=== PATIENT | male | born 1965 | race Caucasian/White ===

== ENCOUNTER 2023-11-02 20:59 | Emergency (ER) | payer OTHER, SELFPAY ==
[2023-11-02 21:02] VITALS: BP 163/98
[2023-11-02 21:24] LABS: % Basophils 0.6 % (0-2); % Eosinophils 3.4 % (0-6); % Monocytes 6.8 % (1.7-9.3); % Neutrophils 52.2 % (42.2-75.2); Absolute Eosinophils 0.2 10^3/uL (0-0.7); Absolute Lymphocytes 1.7 10^3/uL (1.2-3.4); Absolute Monocytes 0.3 10^3/uL (0.1-0.6); Absolute Neutrophils 2.4 10^3/uL (1.4-6.5); Hematocrit 40.5 % (39.0-52.0); Hemoglobin 13.6 g/dL (13.0-18.0); Mean Corp Hgb Conc. 33.6 g/dL (33.0-37.0); Mean Corpuscular Hgb 28.5 pg (27.0-31.0); Mean Corpuscular Volume 84.9 fL (80.0-94.0); Mean Platelet Volume 9.1 fL (7.4-10.4); Nucleated Red Blood Cells % 0 % (-); Platelet Count 164 10^3/uL (130-400); Red Blood Cell Count 4.77 10^6/uL (4.70-6.10); Red Cell Dist. Width 13.8 % (11.5-14.5); White Blood Cell Count 4.7 10^3/uL (4.8-10.8)
[2023-11-02 21:39] LABS: ALT (SGPT) 20 U/L (0-50); AST (SGOT) 30 U/L (17-59); Albumin 4.4 g/dl (3.5-5.0); Alkaline Phosphatase 108 U/L (38-126); Blood Urea Nitrogen 17 mg/dl (9-20); Carbon Dioxide 28 mmol/L (22-30); Chloride 104 mmol/L (98-107); Glucose 101 mg/dl (70-99); Potassium 3.9 mmol/L (3.5-5.1); Sodium 138 mmol/L (135-145); Total Bilirubin 0.7 mg/dl (0.2-1.3); Total Protein 7.1 g/dl (6.3-8.2); eGFR > 60.00
[2023-11-02 21:50] LABS: Troponin I < 0.012 ng/ml
[2023-11-02 21:53] VITALS: BP 139/86
[2023-11-02 22:00] VITALS: BP 139/89
[2023-11-02 22:15] VITALS: BMI 26.4
--- NOTE | 2023-11-02 22:45 | ED.GENMED ---
History of Present Illness
<JOSE Mendieta - Last Filed: 11/02/23 23:13>
General
Chief Complaint: Chest Pain
Source: patient
Exam Limitations: none
Time Seen by Provider: 11/02/23 22:33
Travel History
Have you had any contact with someone who has COVID-19?: No
Do you have any symptoms of coronavirus? Fever > 100 degrees, chills, cough, shortness of breath, sore throat, loss of taste or smell, muscle aches, or headache?: No
History of Present Illness
History of Present Illness:
58 YO M with a PMH of MVP diagnosed at age 12, chronic upper back muscle spasm, right shoulder slap tear >10 years ago, and anxiety presents to the ED tonight with complaints of intermittent left sided chest pain since Monday. Pt reports this
started while he was sitting in the office. He has not taken anything for the pain. He does have some radiation into his left side of his mid back, but states that it is usually present with his chronic muscle spasm. He has been under stress from
his job. 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 He also states his father two months ago. Denies recent travel. Pt states he is planning on traveling Monday and wants to make sure everything is okay before then. Pt does not take daily medications.
Denies SOB, N,V, diaphoresis, dysuria, hematuria, and rectal bleeding.
Denies use of aspirin or anticoagulants.
Social drinker, denies smoking history, denies drug use.
Review of Systems
<JOSE Mendieta - Last Filed: 11/02/23 23:13>
Review of Systems
Constitutional: Reports no symptoms
EENT: Reports no symptoms
Respiratory: Reports no symptoms
Cardiac: Reports chest pain
ABD/GI: Reports no symptoms
: Reports no symptoms
Musculoskeletal: Reports no symptoms
Skin: Reports no symptoms
Neurological: Reports no symptoms
Endocrine: Reports no symptoms
Psychiatric: Reports anxiety
Phy Exam
<Crista Holguin [facility] - Last Filed: 11/02/23 23:13>
Physical Exam
Physical Exam:
Normal S1 and S2
Breath sounds are clear and equal B/L
Mid left sided back pain with palpation
General Physical Exam
General Presentation: well appearing
General age: appears stated age
General Skin: warm and dry
General Habitus: normal
General Mental: alert
General Hydration: appears well hydrated
Cardiovascular Exam
Cardiovascular Exam: regular rate/rhythm
Pulmonary Exam
Pulmonary Exam: lungs clear and no respiratory distress
Neurological Exam
Neurological Exam: alert and oriented x3
Psychiatric Exam
Psychiatric Exam: normal mood/affect
Scores
<Abdirizak Campbell, DO - Last Filed: 11/02/23 23:57>
Heart Score for Chest Pain Patients
STEMI patient?: No
History: Slightly or Non-Suspicious
ECG: Normal
Age: >45 - <65 years
Risk Factors: 1 or 2 Risk Factors
Troponin: </= Normal Limit
Heart Score for Chest Pain Patients: 2
Heart Score Risk: 2.5% MACE over next 6 weeks
Course
<Crista Holguin [facility] - Last Filed: 11/02/23 23:13>
Orders/Labs/Results
Orders:
Orders
11/02/23 21:00
EKG [Electrocardiogram (*1)] Urgent
Reason for Study: Chest Pain
EKG- Treatment ONCE
11/02/23 21:15
CBC/With Diff [Complete Blood Count/With Diff] Urgent
CMP [Comprehensive Metabolic Panel] Urgent
Troponin I Urgent
11/02/23 23:12
CR Chest - 2 Views Urgent
Comment:
Reason For Exam: Left chest pain
Abnormal Lab Results
11/02/23
21:15
WBC 4.7 L 10^3/uL
(4.8-10.8)
Glucose 101 H mg/dl
(70-99)
11/02/23 21:15
11/02/23 21:15
Vital Signs
Initial and Last Documented VS:
Initial Vital Signs
Temp Pulse Resp BP Pulse Ox
98.2 F 60 18 163/98 99
11/02/23 21:02 11/02/23 21:02 11/02/23 21:02 11/02/23 21:02 11/02/23 21:02
Last Documented Vital Signs
Temp Pulse Resp BP Pulse Ox
98.2 F 65 18 139/89 99
11/02/23 21:02 11/02/23 22:00 11/02/23 22:00 11/02/23 22:00 11/02/23 22:16
<Abdirizak Campbell, DO - Last Filed: 11/02/23 23:57>
Orders/Labs/Results
Orders:
Orders
11/02/23 21:00
EKG [Electrocardiogram (*1)] Urgent
Reason for Study: Chest Pain
EKG- Treatment ONCE
11/02/23 21:15
CBC/With Diff [Complete Blood Count/With Diff] Urgent
CMP [Comprehensive Metabolic Panel] Urgent
Troponin I Urgent
11/02/23 23:12
CR Chest - 2 Views Urgent
Comment:
Reason For Exam: Left chest pain
Abnormal Lab Results
11/02/23
21:15
WBC 4.7 L 10^3/uL
(4.8-10.8)
Glucose 101 H mg/dl
(70-99)
11/02/23 21:15
11/02/23 21:15
Vital Signs
Initial and Last Documented VS:
Initial Vital Signs
Temp Pulse Resp BP Pulse Ox
98.2 F 60 18 163/98 99
11/02/23 21:02 11/02/23 21:02 11/02/23 21:02 11/02/23 21:02 11/02/23 21:02
Last Documented Vital Signs
Temp Pulse Resp BP Pulse Ox
98.2 F 65 18 139/89 99
11/02/23 21:02 11/02/23 22:00 11/02/23 22:00 11/02/23 22:00 11/02/23 22:16
<JOSE Mendieta - Last Filed: 11/02/23 23:13>
MDM/Problems Addressed
Differential Diagnosis Includes:
CAD: STEMI vs. NSTEMI, Unstable vs. Stable angina, Anxiety, Costochondritis, Aortic Dissection, Pneumothorax, PE
MDM/Problems Addressed:
Left sided CP since Monday
Chronic conditions affecting care: Other (Chronic muscle spasm: back, anxiety, right shoulder slap tear surgery)
<JOSE Mendieta - Last Filed: 11/02/23 23:13>
*Critical Care Note
Total Time (30-74mins, 75-104mins- exclusive of procedures): Not Applicable
<Abdirizak Campbell DO - Last Filed: 11/02/23 23:57>
Update Note
Update Note:
X-ray independently reviewed: Chest x-ray clear. Patient feels comfortable going home.
ED Attending Note
<JOSE Mendieta - Last Filed: 11/02/23 23:13>
-
Portions of this chart may have been created with voice recognition software.� Occasional wrong word or��sound alike� substitutions may have occurred due to the inherent limitations of voice recognition software.
<Abdirizak Campblel, DO - Last Filed: 11/02/23 23:57>
ED Attending Note
Patient seen and examined by attending physician: Yes
I performed the substantive portion of visit, reviewed & personally made and approve the management plan that is documented in note by myself or ALESSIA.: Yes
ED Attending Note:
I have seen and evaluated the patient with a [id number] encounter. I have spoken to the advance practicer provider and involved in the medical history, the physical exam, medical decision making.
Evaluation and management service: agree unless noted differently below.
Results interpretation: agree unless noted differently below.
Focused HPI: 58-year-old male presenting with intermittent left-sided chest pain. It is sometimes associate with back pain 2. Patient states it has been ongoing for the past day or 2. It is sometimes random. It is not worse with exertion. He
denies any recent travel. Patient has been doing recent heavy lifting
Physical exam: Sitting bed comfortably. Heart regular rate and rhythm. Lungs clear. No rash noted to chest. Very mild reproducible tenderness with palpation of his pectoralis major. No leg edema
Medical Decision Making: Patient is low risk for acute coronary syndrome. Given normal EKG and normal troponin while being on exertional, doubt ACS. Will obtain chest x-ray. Discussed follow-up with cardiology as an outpatient for stress and echo
Discharge Plan
Departure
Patient Disposition: Home (Routine Discharge)
Date of Disposition: 11/02/23
Time of Disposition: 23:56
Patient with high blood pressure during this ER visit?: Yes
Discharge Problem:
Left-sided chest pain
Instructions: Chest Pain PCP Follow Up, BLOOD PRESSURE
Referrals:
Nico Tai MD [Active] -
Chaparrita Austin MD [Family Provider] -
Activity Restrictions/Additional Instructions:
Please return for any worsening symptoms.
You may return at any time if you have further concerns.
Please follow up with your doctor at the first available appointment, preferably this week.
Please make an appointment to see the pulp piler.
Thank you for choosing [facility].
Interventions
Interventions:
*Risk Screen - Suicide Last Done: 11/02/23 22:16
*General Assessment Last Done: 11/02/23 22:16
*Neglect/Abuse Screening Last Done: 11/02/23 22:16
ED- Fall Risk Assessment Last Done: 11/02/23 22:16
*ED COVID-19 Vaccine History Last Done: 11/02/23 22:16
ED- Cardiac Assessment Last Done: 11/02/23 22:16
Discharge Date and Time
Print Language: ANGOLAN
== END 2023-11-03 00:05 | disposition home or self-care (01) ==
LOC: EMR 20:59
PROVIDERS: Emergency Medicine; EMERGENCY PHYSICIAN Student in an Organized Health Care Education/Training Program; FAMILY PHYSICIAN Family Medicine
DX: R07.89 Other chest pain (principal); F41.9 Anxiety disorder, unspecified
CPT/HCPCS: 99283; 71046; 80053; 84484; 85025; 93005

== ENCOUNTER 2024-09-24 13:03 | Emergency (ER) | payer OTHER, SELFPAY ==
[2024-09-24 13:10] VITALS: BP 157/94
[2024-09-24 13:41] LABS: % Basophils 0.9 % (0-2); % Immature Granulocytes 0.2 % (0-0.5); % Lymphocytes 37.6 % (20.5-51.1); % Monocytes 6.2 % (1.7-9.3); % Neutrophils 53.1 % (42.2-75.2); Absolute Eosinophils 0.1 10^3/uL (0-0.7); Absolute Lymphocytes 1.7 10^3/uL (1.2-3.4); Absolute Monocytes 0.3 10^3/uL (0.1-0.6); Absolute Neutrophils 2.4 10^3/uL (1.4-6.5); Hematocrit 40.7 % (39.0-52.0); Mean Corp Hgb Conc. 34.4 g/dL (33.0-37.0); Mean Corpuscular Hgb 29.2 pg (27.0-31.0); Mean Corpuscular Volume 84.8 fL (80.0-94.0); Mean Platelet Volume 8.6 fL (7.4-10.4); Nucleated Red Blood Cells % 0 % (-); Platelet Count 165 10^3/uL (130-400); Red Cell Dist. Width 13.8 % (11.5-14.5); White Blood Cell Count 4.6 10^3/uL (4.8-10.8)
[2024-09-24 14:01] LABS: ALT (SGPT) 33 U/L (0-50); AST (SGOT) 30 U/L (17-59); Albumin 4.1 g/dl (3.5-5.0); Alkaline Phosphatase 78 U/L (38-126); Blood Urea Nitrogen 11 mg/dl (9-20); Calcium 9.8 mg/dl (8.4-10.2); Carbon Dioxide 28 mmol/L (22-30); Chloride 105 mmol/L (98-107); Glucose 95 mg/dl (70-99); Potassium 4.1 mmol/L (3.5-5.1); Sodium 141 mmol/L (135-145); Total Bilirubin 0.8 mg/dl (0.2-1.3); Total Protein 6.8 g/dl (6.3-8.2); eGFR > 60.00
[2024-09-24 14:03] LABS: Troponin I < 0.012 ng/ml
[2024-09-24 15:18] VITALS: BP 138/80
[2024-09-24 16:01] VITALS: BP 153/96
--- NOTE | 2024-09-24 16:11 | ED.GENMED ---
History of Present Illness
General
Chief Complaint: Chest Pain
Source: patient
Exam Limitations: none
Time Seen by Provider: 09/24/24 16:10
Nursing documentation reviewed up to this point in time: agreed with
History of Present Illness
History of Present Illness:
59-year-old male presents the emergency department due to left-sided chest pain ongoing for the past 3 days. There are no exertional symptoms. He denies shortness of breath. He has never had this type of pain before. He has been exercising more
recently, and denies having any chest pain while exercising.
Past History
Past History
ED Past Medical History: None
ED Past Surgical History: Orthopedic (Left rotator cuff) and Other (Facial surgery)
Social History
Tobacco: Non-smoker
Alcohol: None
Drug: None
Employment: Employed
Review of Systems
Review of Systems
Allergies reviewed?: Yes
All Other Systems: Not applicable
Constitutional: Reports no symptoms
EENT: Reports no symptoms
Respiratory: Reports no symptoms; Denies trouble breathing
Cardiac: Reports chest pain
ABD/GI: Reports no symptoms
: Reports no symptoms
Musculoskeletal: Reports no symptoms
Skin: Reports no symptoms
Neurological: Reports no symptoms
Endocrine: Reports no symptoms
Hematologic/Lymphatic: Reports no symptoms
Psychiatric: Reports no symptoms
Phy Exam
Physical Exam
Physical Exam:
Physical Exam
General: no apparent distress, not acutely ill
Neck: supple. no meningeal signs. normal posterior pharynx
Heart: s1/s2 regular rate and rhythm, no murmur. equal radial
pulses.
HEENT: Pupils equal round reactive to light, EOMI
Lungs: no acute respiratory distress. clear bilaterally
Abdomen: normal bowel sounds. not tender. no CVAT
Neuro: alert and oriented. no focal neurological deficits cranial nerves II through XII intact
Skin: no rash
Psychiatric: well kept. interactive and cooperative
Extremities: no edema. no calf tenderness. negative homans. good distal pulses
Scores
Heart Score for Chest Pain Patients
STEMI patient?: No
History: Slightly or Non-Suspicious
ECG: Normal
Age: >45 - <65 years
Risk Factors: No Risk Factors
Troponin: </= Normal Limit
Heart Score for Chest Pain Patients: 1
Heart Score Risk: 2.5% MACE over next 6 weeks
Course
Orders/Labs/Results
Orders:
Orders
09/24/24 13:06
Electrocardiogram (*1) Urgent
Reason for Study: Chest Pain
EKG- Treatment ONCE
09/24/24 13:18
Complete Blood Count/With Diff Urgent
Comprehensive Metabolic Panel Urgent
Troponin I Urgent
09/24/24 15:24
CR Chest - 2 Views Urgent
Comment:
Reason For Exam: chest pain
09/24/24 16:35
D-Dimer Urgent
Abnormal Lab Results
09/24/24
13:18
WBC 4.6 L 10^3/uL
(4.8-10.8)
09/24/24 13:18
09/24/24 13:18
Vital Signs
Initial and Last Documented VS:
Initial Vital Signs
Temp Pulse Resp BP Pulse Ox
98.3 F 70 16 157/94 98
09/24/24 13:10 09/24/24 13:10 09/24/24 13:10 09/24/24 13:10 09/24/24 13:10
Last Documented Vital Signs
Temp Pulse Resp BP Pulse Ox
98.3 F 67 8 135/89 95
09/24/24 13:10 09/24/24 17:00 09/24/24 17:00 09/24/24 17:00 09/24/24 17:00
MDM/Problems Addressed
Differential Diagnosis Includes:
PE, ACS
MDM/Problems Addressed:
59-year-old male with chest pain, unclear etiology. Normal chest x-ray, negative troponin and D-dimer. Symptoms ongoing for several days. No repeat troponin needed. Will discharge to follow-up with primary care. Return precautions given.
*Radiology
Radiology exam reviewed: radiology read reviewed (Chest x-ray no acute findings)
*Pulse Oximetry
Patient hypoxic: no
*EKG
Interpreted by ED Provider?: Yes
EKG Intrepretation Date: 09/24/24
EKG Intrepretation Time: 13:11
Interpretation: normal
Comparison EKG: no comparison EKG present
Heart Rate: 64
Rate: normal
Rhythm: sinus
[place]: normal axis
Interval: normal interval
QRS Pattern: normal QRS
Ischemia: no ischemia
*Merchandise Flow Team Leader Interpretation
Rate: normal
Interpretation: normal
Heart Rate: 66
Rhythm: sinus
*Critical Care Note
Total Time (30-74mins, 75-104mins- exclusive of procedures): Not Applicable
Data Reviewed
Further Testing Considered But Not Given:
ct chest not indicated
Patient Management
Social determinants of health affecting care: Living situation and Strong social support
Escalation/DeEscalation of care consider admission/obs:
admit not indicated
ED Attending Note
-
Portions of this chart may have been created with voice recognition software.� Occasional wrong word or��sound alike� substitutions may have occurred due to the inherent limitations of voice recognition software.
Discharge Plan
Departure
Patient Disposition: Home (Routine Discharge)
Date of Disposition: 09/24/24
Time of Disposition: 17:24
Patient with high blood pressure during this ER visit?: Yes
Condition: Good
Discharge Problem:
Chest pain
Instructions: Chest Pain PCP Follow Up, BLOOD PRESSURE
Referrals:
Tenthoff,Chaparrita Garza MD [Family Provider] - Call in 1-3 days for appt
Interventions
Interventions:
*Risk Screen - Suicide Last Done: 09/24/24 13:10
*General Assessment Last Done: 09/24/24 13:10
*Neglect/Abuse Screening Last Done: 09/24/24 13:10
*ED- Fall Risk Assessment Last Done: 09/24/24 13:10
*ED COVID-19 Vaccine History Last Done: 09/24/24 13:10
ED- Cardiac Assessment Last Done: 09/24/24 17:08
Discharge Date and Time
Print Language: [place]
[2024-09-24 17:00] VITALS: BP 135/89
[2024-09-24 17:17] LABS: D-Dimer < 0.27 ug/mlFEU (0.00-0.50)
== END 2024-09-24 17:33 | disposition home or self-care (01) ==
LOC: EMR 13:03
PROVIDERS: Physician Assistant; EMERGENCY PHYSICIAN Emergency Medicine; FAMILY PHYSICIAN Family Medicine
DX: R07.89 Other chest pain (principal)
CPT/HCPCS: 99285; 71046; 80053; 84484; 85025; 85379; 93005